=== PATIENT | male | born 1950 | race Caucasian/White ===

== ENCOUNTER → 2022-12-31 11:06 | Outpatient (BNVA) | payer MEDICARE, BC, SELFPAY | PROVIDERS: Visit Provider Specialist | DX: G24.3 Spasmodic torticollis (principal); R51.9 Headache, unspecified | CPT/HCPCS: 64616; 99204; J0585 ==

== ENCOUNTER → 2023-04-01 09:09 | Outpatient (BNVA) | payer MEDICARE, BC, SELFPAY | PROVIDERS: Visit Provider Specialist | DX: G24.3 Spasmodic torticollis (principal); G43.711 Chronic migraine without aura, intractable, with status migrainosus | CPT/HCPCS: 64616; J0585 ==

== ENCOUNTER → 2023-09-09 08:49 | Outpatient (BNVA) | payer MEDICARE, SELFPAY | PROVIDERS: Visit Provider Specialist | DX: G24.3 Spasmodic torticollis (principal); G43.711 Chronic migraine without aura, intractable, with status migrainosus | CPT/HCPCS: 64616; J0585 ==

== ENCOUNTER → 2024-04-07 14:45 | Outpatient (BNVA) | payer MEDICARE, BC, SELFPAY | PROVIDERS: Visit Provider Specialist | DX: G24.3 Spasmodic torticollis (principal); G43.711 Chronic migraine without aura, intractable, with status migrainosus | CPT/HCPCS: 64616; J0585 ==

== ENCOUNTER → 2024-07-07 09:00 | Outpatient (BNVA) | payer MEDICARE, BC, SELFPAY | PROVIDERS: Visit Provider Specialist | DX: G24.3 Spasmodic torticollis (principal); G43.711 Chronic migraine without aura, intractable, with status migrainosus | CPT/HCPCS: 64616; 99213; J0585 ==

== ENCOUNTER → 2024-11-10 10:26 | Outpatient (BNVA) | payer MEDICARE, BC, SELFPAY | PROVIDERS: Visit Provider Specialist | DX: G24.3 Spasmodic torticollis (principal); G43.711 Chronic migraine without aura, intractable, with status migrainosus; M54.81 Occipital neuralgia | CPT/HCPCS: 64450; 99212; J1010; J3490 ==

== ENCOUNTER → 2024-12-21 11:40 | Outpatient (BNVA) | payer MEDICARE, BC, SELFPAY | PROVIDERS: Visit Provider Specialist | DX: M54.81 Occipital neuralgia (principal); G24.3 Spasmodic torticollis; G43.711 Chronic migraine without aura, intractable, with status migrainosus | CPT/HCPCS: 64405; J1010; J3490 ==

== ENCOUNTER → 2025-05-24 12:24 | Outpatient (BNVA) | payer MEDICARE, BC, SELFPAY | PROVIDERS: Visit Provider Specialist | DX: M54.81 Occipital neuralgia (principal); G24.3 Spasmodic torticollis; G43.711 Chronic migraine without aura, intractable, with status migrainosus; R03.0 Elevated blood-pressure reading, without diagnosis of hypertension | CPT/HCPCS: 64405; 99213; J1010; J3490 ==